=== PATIENT | male | born 1975 | race Caucasian/White ===

== ENCOUNTER 2016-08-15 15:01 | Emergency (ER) | payer SELFPAY ==
[~2016-08-15] VITALS: Ht 175.3 cm; Wt 71.0 kg
[2016-08-15 15:05] VITALS: Ht 175.3 cm; Wt 71.0 kg
[2016-08-15] MEDS ORDERED: IBUP-1542 PO (15:31)
--- NOTE | 2016-08-15 15:37 | ERD ---
ER Documentation Chief Complaint Date/Time DATE: 08/15/16 TIME: 15:34 Chief Complaint PAIN & LOSING VOICES [id number] HPI 41-year-old male complaining of sore throat 6 days. Patient stated that he would lose his voice "in and out" throughout the day. 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 Patient also reports slight dry cough. Denies fever or chills. Denies headache or neck pain. Denies shortness of breath. ROS All systems reviewed and are negative except as per history of present illness. Medications Home Meds Active Scripts Ibuprofen* (Motrin*) 600 Mg Tab, 600 MG PO Q6H Y for PAIN AND OR ELEVATED TEMP, #30 TAB Prov:LALITA LINCOLN PRODUCE SPECIALIST 08/15/16 Allergies Allergies: Coded Allergies: No Known Allergy (Unverified , 08/17/12) PMhx/Soc History of Surgery: No Anesthesia Reaction: No Hx Neurological Disorder: No Hx Respiratory Disorders: No Hx Cardiac Disorders: No Hx Psychiatric Problems: No Hx Miscellaneous Medical Probl: No Hx Alcohol Use: Yes Hx Substance Use: No Hx Tobacco Use: No Physical Exam Vitals Vital Signs Date Time Temp Pulse Resp B/P Pulse Ox O2 Delivery O2 Flow Rate FiO2 08/15/16 15:05 98.6 88 20 122/75 95 Physical Exam General: Well-developed, well-nourished, conscious and coherent, in no distress Skin: Warm and dry without rash, good texture and turgor Head: Normocephalic without evidence of trauma Eyes: Sclera and conjunctivae normal; pupils equal, round, and reactive to light; extraocular movements are intact Ears: Canals are patent. Tympanic membranes are clear Nose/Face: Slight nasal congestion without rhinorrhea Mouth/throat: Mucous membranes are moist. Posterior pharynx slightly erythematous without edema or exudates Neck: Supple without meningismus or adenopathy. Carotids are equal. Trachea midline. No bruits or JVD Chest: Normal AP diameter. Good expansion without retractions. Nontender. Lungs are clear to auscultate bilaterally with good tidal volume Heart: Regular rate and rhythm. No murmur, rub, or gallops heard Extremities: Full range of motion. Good strength bilaterally. No clubbing, cyanosis, or edema. Peripheral pulses are intact. Sensation intact Neuro: Alert and oriented 4, GCS 15. Cranial nerves grossly intact. Motor and sensory exams nonfocal. Moves all extremities. Speech clear. Gait normal Procedures/MDM Well-appearing 41-year-old male presented ED with acute pharyngitis. Because of his findings as likely viral. No sign of strep pharyngitis. I doubt peritonsillar or retropharyngeal abscess. Discussed with patient all over-the- counter symptom relief measures such as saltwater gargle and honey lemon tea. Also recommended to patient to rest his voice for 2-3 days per patient appears well, stable for discharge and outpatient management. Medical decision making shared with patient and family. Education provided to patient and family. Patient and family expressed understanding of the plan. Medications on discharge: Ibuprofen. Follow-up: Primary care provider in 2-3 days or return to ED if worse. Departure Diagnosis: Primary Impression: Viral pharyngitis Condition: Good Patient Instructions: Pharyngitis, Viral Referrals: [facility] YOU HAVE RECEIVED A MEDICAL SCREENING EXAM AND THE RESULTS INDICATE THAT YOU DO NOT HAVE A CONDITION THAT REQUIRES URGENT TREATMENT IN THE EMERGENCY DEPARTMENT. FURTHER EVALUATION AND TREATMENT OF YOUR CONDITION CAN WAIT UNTIL YOU ARE SEEN IN YOUR DOCTORS OFFICE WITHIN THE NEXT 1-2 DAYS. IT IS YOUR RESPONSIBILITY TO MAKE AN APPOINTMENT FOR FOLOW-UP CARE. IF YOU HAVE A PRIMARY DOCTOR --you should call your primary doctor and schedule an appointment IF YOU DO NOT HAVE A PRIMARY DOCTOR YOU CAN CALL OUR PHYSICIAN REFERRAL HOTLINE AT IF YOU CAN NOT AFFORD TO SEE A PHYSICIAN YOU CAN CHOSE FROM THE FOLLOWING [facility] [address] [facility]. [facility] [address] [facility]. [facility] [address] [facility]. [facility] [address] [facility]. [facility] [address] [facility]. [facility]. [address] Additional Instructions: Call your primary care doctor TOMORROW for an appointment during the next 2-3 days.See the doctor sooner or return here if your condition worsens before your appointment time. LALITA LINCOLN. IZABELA Aug 15, 2016 15:37
== END 2016-08-15 15:32 | disposition home or self-care (01) ==
LOC: E/R 15:01
DX: J02.8 Acute pharyngitis due to other specified organisms (principal); B97.89 Other viral agents as the cause of diseases classified elsewhere; R40.2412 Glasgow coma scale score 13-15, at arrival to emergency department
CPT/HCPCS: 99283

== ENCOUNTER 2017-11-28 11:51 | Emergency (ER) | END 2017-11-28 13:21 | disposition home or self-care (01) ==

== ENCOUNTER 2018-09-26 04:20 | Emergency (ER) | payer OTHER ==
[~2018-09-26] VITALS: Ht 175.3 cm; Wt 76.2 kg
[~2018-09-26 04:20] MED LIST: CLOT30CR24 TOP; IBUP-1542 PO
[2018-09-26 04:23] VITALS: Ht 175.3 cm; Wt 76.2 kg
--- NOTE | 2018-09-26 06:15 | PSY ---
Date/Time of Note Date/Time of Note DATE: 09/26/18 TIME: 05:51 Psychiatric Subjective Eval Consent Pt consented to telemedicine: Yes Subjective Evaluation Patient location: emergency Chief Complaint: states wants a psyche eval. denies dto/dts, c/o anxiety Medical history Problems Medical Problems: (1) Memory loss Status: Acute (2) Tinea Status: Acute (3) Viral pharyngitis Status: Acute Allergies: Coded Allergies: No Known Allergy (Unverified , 11/28/17) Assessment and Plan Recommendation/Plan Discharge Disposition: Community (home) Legal Status: Voluntary Assessment Additional comments: IDENTIFYING INFORMATION: 43 year old Male patient who is currently located at the hospital and for whom psychiatric consultation was requested. SOURCES OF INFORMATION: The patient who appears to be reliable and the medical records; the nursing staff. CHIEF COMPLAINT: "anxiety". HISTORY OF PRESENT ILLNESS: The patient was interviewed via telemedicine in the presence of and under the supervision of nursing staff of the hospital. The consent to conducting this interview via telemedicine was obtained by the nursing staff at the hospital. ESTRELLITA Bianchi reports that the patient presented with panic attacks. The patient reports having anxiety after his ex-girlfriend threatened to commit suicide earlier tonight, and even was aggressive towards him at which time he called 911 to get her help. He was very anxious initially, but he was able to calm down fine after the police arrived and to go over this situation. He reports that he felt quite anxious, but also wanted to know what to do in similar circumstances in the future. Admits to occasional insomnia. The patient denies having SI, HI, depressed mood, anhedonia, inability to relax, low appetite, AH, VH, delusions, hopelessness, helplessness. The patient denies using alcohol heavily or regularly. The patient denies using any other substances. In terms of past psychiatric history, the patient reports having a history of no past psychiatric hospitalizations or contacts. The patient reports having a history of no past suicide attempts. Past medication trials: none. The patient denies ever having a history of AH, delusions, persistent or serious depression or anhedonia, manic or hypomanic episodes. PAST MEDICAL HISTORY: none. CURRENT MEDICATIONS: tylenol prn. ALLERGIES TO MEDICATIONS: NKDA. LABORATORY TESTS: pending. 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 FAMILY HISTORY: Noncontributory for major depressive disorder, bipolar disorder, schizophrenia. REVIEW OF SYSTEMS: Constitutional (e.g., fever, weight loss): negative; Eyes, Ears, Nose, Mouth, Throat: negative; Cardiovascular: negative; Respiratory: negative; Gastrointestinal: negative; Genitourinary: negative; Musculoskeletal: negative; Integumentary (skin and/or breast): negative; Neurological: negative; Psychiatric: as per HPI; Endocrine: negative; Hematologic/Lymphatic: negative; Allergic/Immunologic: negative. MENTAL STATUS EXAMINATION: General Appearance and Behavior: Calm, cooperative with the interview, pleasant with the current interviewer, makes good eye contact, well groomed, no abnormal movements noted, Speech: Regular rate, regular rhythm, normal latency, normal volume, somewhat decreased amount, Flow of thought: sequential, logical, goal-directed, Content of thought: no auditory hallucinations, no visual hallucinations, no delusions, negative for suicidal ideation; no homicidal ideation, Mood: "anxious", Affect: euthymic, reactive, Attention: normal based on the interview, Insight: good, Judgment: good, Memory: normal based on the interview, Sensorium: alert and oriented to person, place and date. ASSESSMENT: The patient's presentation and history are consistent with the diagnosis of adjustment disorder with anxious mood. The patient presents with anxiety in the context of acute psychosocial stress ors. The patient does not have a chronic history of anxiety. The patients anxiety revolves around an extremely stressful situation that happened earlier today. No evidence of psychosis, ishan, hypomania on exam. The patient is not in a major depressive episode at this time. The patient does not satisfy criteria for panic disorder or generalized anxiety disorder PLAN: - Medication management: No indication for any psychiatric medication at this time. Offered lorazepam, but the patient kindly declined explaining that he would rather deal with this without medication especially because he is feeling better now. - Labs: Please check Alcohol level, UDS, TSH. - Psychotherapy: Provided supportive psychotherapy and psychoeducation. - Disposition: If the patient's alcohol level is above the legal limit, then please reconsult psychiatry to determine disposition once the patient's alcohol level is below the legal limit. If the patient's alcohol level comes back below the legal limit, then the patient is appropriate for the outpatient level of care at this time from a psychiatric perspective. The patient is not an imminent danger to self or others. The patient is motivated for outpatient treatment. The patient agrees to be compliant with outpatient follow-up appointments and pharmacotherapy as indicated. Would recommend that the patient follows up with a psychiatrist. Resources for outpatient follow-up will be provided by the hospital staff. The patient's risk for completed suicide is low in comparison to the general population. Risk factors include marital status, race, gender, possible anxiety disorder. Protective factors include age, absence of substance use disorder, absence of schizophrenia, bipolar disorder, major depressive disorder, personality disorde r, no access to firearms, no history of past suicide attempts, no major chronic medical problems, good social support. The patient's risk for completed suicide cannot be modified more effectively with inpatient admission at this time. The patient is not an imminent danger to self or others at this time and does not meet the legal criteria for involuntary admission. Risks, benefits, alternatives were discussed and the patient provided informed consent to proceed with the above plan. Discussed with ESTRELLITA Bianchi. I called the emergency room physician who is taking care of the patient to discuss about the above plan but the emergency room physician is not available at this time. I left my phone number with the hospital staff requesting a callback so that the emergency room physician can reach me when they become available. YRN LECHUGA MD Sep 26, 2018 06:13
--- NOTE | 2018-09-26 06:59 | ERD ---
ER Documentation Chief Complaint Chief Complaint states wants a psyche eval. denies dto/dts, c/o anxiety HPI This is a 43-year-old male with no significant past medical history is presenting with symptoms concerning for an anxiety attack. The patient reportedly recently broke up with his girlfriend. She was drunk this evening and with him and indicated that she wanted to kill herself. He spent the entire night trying to talk her down and ultimately called the police. He was ultimately able to get her to a safe place, but the whole situation left him feeling very panicked. He endorsed feeling significant palpitations and anxiousness and a significant sense of doom. The patient was nauseated at the time and did have one episode of nonbilious nonbloody vomiting. He denies any suicidal or homicidal ideations. He denies any history of mental illness. That said, he was hoping to speak to psychiatrist to discuss what he is going through right now. The patient reports that since being in the ER, he has had a chance to calm down, and he feels much better now. The patient denies feeling sick recently. The patient denies fever or chills. The patient has had no headache or vision changes. The patient does not endorse neck or back pain. The patient denies lightheadedness or dizziness. The patient has had no chest pain or trouble breathing. The patient denies abdominal pain. The patient denies changes to bowel movements or urination. The patient has had no focal deficits. The patient has had no weakness or numbness or tingling to the face or extremities. ROS All systems reviewed and are negative except as per history of present illness. Medications Home Meds Active Scripts Clotrimazole* (Clotrimazole* AF) 1% - 30 Gm Cream.gm., 1 APPLIC TOP BID for 7 Days, TUB Prov:SALTY SEWELL PA-C 11/28/17 Ibuprofen* (Motrin*) 600 Mg Tab, 600 MG PO Q6H PRN for PAIN AND OR ELEVATED TEMP, #30 TAB Prov:LALITA LINCOLN NP 08/15/16 Allergies Allergies: Coded Allergies: No Known Allergy (Unverified , 11/28/17) PMhx/Soc History of Surgery: No Anesthesia Reaction: No Hx Neurological Disorder: No Hx Respiratory Disorders: No Hx Cardiac Disorders: No Hx Psychiatric Problems: No Hx Miscellaneous Medical Probl: No Hx Alcohol Use: Yes Hx Substance Use: No Hx Tobacco Use: No Smoking Status: Unknown if ever smoked FmHx Family History: No diabetes Physical Exam Vitals Vital Signs Date Temp Pulse Resp B/P (MAP) Pulse Ox O2 O2 Flow FiO2 Time Delivery Rate 09/26/18 98.7 96 18 133/85 96 04:23 (101) Physical Exam Const: No acute distress Head: Atraumatic Eyes: Normal Conjunctiva ENT: Normal External Ears, Nose and Mouth. Neck: Full range of motion. No meningismus. Resp: Clear to auscultation bilaterally Cardio: Regular rate and rhythm, no murmurs Abd: Soft, non tender, non distended. Normal bowel sounds Skin: No petechiae or rashes Back: No midline or flank tenderness Ext: No cyanosis, or edema Neur: Awake and alert Psych: Anxious. No suicidal homicidal ideations. No auditory or visual hallucinations. Result Diagram: 09/26/18 0617 Results 24 hrs Laboratory Tests Test 09/26/18 06:17 09/26/18 06:20 White Blood Count 8.3 10^3/ul Red Blood Count 5.11 10^6/ul Hemoglobin 16.0 g/dl Hematocrit 46.9 % Mean Corpuscular Volume 91.8 fl Mean Corpuscular Hemoglobin 31.3 pg Mean Corpuscular Hemoglobin Concent 34.1 g/dl Red Cell Distribution Width 12.8 % Platelet Count 309 10^3/UL Mean Platelet Volume 9.6 fl Immature Granulocytes % 0.400 % Neutrophils % 74.1 % Lymphocytes % 17.6 % Monocytes % 7.0 % Eosinophils % 0.2 % Basophils % 0.7 % Nucleated Red Blood Cells % 0.0 /100WBC Immature Granulocytes # 0.030 10^3/ul Neutrophils # 6.1 10^3/ul Lymphocytes # 1.5 10^3/ul Monocytes # 0.6 10^3/ul Eosinophils # 0.0 10^3/ul Basophils # 0.1 10^3/ul Nucleated Red Blood Cells # 0.0 10^3/ul Urine Color YELLOW Urine Clarity CLEAR Urine pH 5.0 Urine Specific [place] 1.015 Urine Ketones 1+ mg/dL Urine Nitrite NEGATIVE mg/dL Urine Bilirubin NEGATIVE mg/dL Urine Urobilinogen NEGATIVE mg/dL Urine Leukocyte Esterase NEGATIVE Hayley/ul Urine Microscopic RBC 1 /HPF Urine Microscopic WBC 1 /HPF Urine Mucus FEW /HPF Urine Hemoglobin 1+ mg/dL Urine Glucose NEGATIVE mg/dL Urine Total Protein NEGATIVE mg/dl Urine Opiates Screen Negative Urine Barbiturates Negative Urine Amphetamines Screen Negative Urine Benzodiazepines Screen Negative Urine Cocaine Screen Negative Urine Cannabinoids Negative Procedures/MDM MDM The patient's presentation warrants further investigation. Previous medical records, if available, were reviewed. LABS The patient's laboratory testing was obtained and reviewed. No emergent treatment was required unless described below. CBC: No E/o systemic infection or severe anemia or thrombocytopenia Chemistry: No E/o severe acidosis or alkalosis or renal failure or liver disease or diabetic ketoacidosis Urine: No E/o acute infection or hematuria Tox: No E/o alcohol abuse. No E/o illicit drug use. No E/o salicylate or acetaminophen use. TREATMENT/DISPOSITION The patient presents for symptoms concerning for an anxiety attack. The patient recently broke up with his girlfriend, which is potentially a large life event for him. I do feel that his transient symptoms are an appropriate reaction to such an event. The patient denies any suicidal or homicidal ideations at this time. The patient denies any auditory or visual hallucinations. I do not feel that he is a danger to himself or others. Telepsychiatry evaluated the patient and felt that supportive care was appropriate. I agree with this assessment. The patient does not require inpatient psychiatric evaluation. The patient was offered a dose of Ativan to help calm his nerves, but the patient declined. DISCHARGE Upon reevaluation of the patient, symptoms have improved. No emergent diagnoses were identified. At this time, I feel that the patient stable for discharge. The patient was instructed to follow-up with a primary care physician in 1-3 days. The patient will be given strict precautions with which to return to the emergency department. Prescriptions: None The patient's blood pressure was elevated at greater than 120/80 while in the emergency department. The patient was otherwise stable with no evidence of hypertensive urgency or emergency. The patient does not require admission for blood pressure control. I have discussed with the patient the risks of hypertension. I have instructed the patient to return to the ER for any new or worsening symptoms including chest pain, shortness of breath, headache, blurred vision, confusion, nausea, vomiting or LOC. I have advised the patient to follow up with the primary care physician for outpatient monitoring and treatment for hypertension in 1-3 days. Disclaimer: Inadvertent spelling and grammatical errors are likely due to EHR/dictation software use and do not reflect on the overall quality of patient care. Note that the electronic time recorded on this note does not necessarily reflect the actual time of the patient encounter. Departure Diagnosis: Primary Impression: Anxiety attack Condition: Stable Patient Instructions: Panic Attack Additional Instructions: Thank you for for coming to [facility] for your care today. Please ask your nurse or provider if you have questions about your care today and do not leave until all your questions have been answered. Please use any medications given as directed and follow-up with your doctor (or the doctor you were referred to) in the next 1-3 days. If you do not have a primary care doctor you may follow up at the [facility] or community health (listed below). You may also use motrin and tylenol as needed for fever and/or pain unless instructed otherwise by your provider or nurse. Indications for more urgent follow-up have been discussed, but you may return to the Emergency Department at ANY time for any worrisome or worsening symptoms. If you have abdominal pain, please know that no test or exam you received is perfect and you should follow up within 8 hours for continued pain. If you had any imaging studies today, such as an X-Ray or CT Scan, these studies will be reviewed later by a radiologist. You will be called if there are important findings that were not identified today, so make sure the contact information you provided at registration is correct. If you received any narcotic pain control medicine today, such as Vicodin, Morphine or Dilaudid, your coordination and judgment may be affected for a number of hours. Please do not drive or operate heavy machinery, and you may want someone to assist you at home. If you were given a prescription for narcot ic medication, be aware that it is very addictive- use sparingly and only if necessary. PLEASE SEEK FURTHER EVALUATION AND MANAGEMENT AT YOUR DOCTORS OFFICE WITHIN THE NEXT 1-3 DAYS. IT IS YOUR RESPONSIBILITY TO MAKE AN APPOINTMENT FOR FOLOW-UP CARE. IF YOU HAVE A PRIMARY DOCTOR, PLEASE CALL THEIR OFFICE TO SCHEDULE AN APPOINTMENT FOR FOLLOW UP. IF YOU DO NOT HAVE A PRIMARY DOCTOR YOU CAN CALL OUR PHYSICIAN REFERRAL HOTLINE AT IF YOU CAN NOT AFFORD TO SEE A PHYSICIAN YOU CAN CHOSE FROM THE FOLLOWING [facility] CL[facility]ICS: [facility] [address] [facility] [address] [facility] [address] [facility] [address] [facility] [address] [facility] [facility]. [address] JOYCE BRODY MD Sep 26, 2018 06:59
[2018-09-26 07:19] VITALS: BP 116/78; PULSE 82; RESP 18
== END 2018-09-26 07:19 | disposition home or self-care (01) ==
LOC: E/R 04:20
DX: F41.9 Anxiety disorder, unspecified (principal)
CPT/HCPCS: 80053; 80307; 81001; 85025; 99283